=== PATIENT | male | born 1975 | race Caucasian/White ===

== ENCOUNTER 2018-08-12 12:10 | Emergency (ER) | payer BC, OTHER ==
[2018-08-12] MEDS ORDERED: LORazepam 2 MG/ML SDV IVPUSH ONE (13:28)
[2018-08-12] MEDS ORDERED: Sodium Chloride 0.9% 10 ML Syringe FLUSH PRN (13:28)
[2018-08-12] MEDS ORDERED: Sodium Chloride 0.9% 1,000 ML IV SCH (13:30)
--- NOTE | 2018-08-12 13:35 | EDM.PDOC ---
ED HPI GENERAL MEDICAL PROBLEM - General Chief Complaint: General Stated Complaint: WEAK/SHAKY Time Seen by Provider: 08/12/18 12:40 Source of Information: Reports: Patient, RN Notes Reviewed History Limitations: Reports: No Limitations - History of Present Illness INITIAL COMMENTS - FREE TEXT/NARRATIVE: Patient is a 43-year-old male who presents to the ED for the evaluation of dizziness. The patient states that the dizziness started this morning. He was sitting in his chair visiting his uncle, when he had a sudden onset of dizziness and felt like he was going to pass out. He states that he stood up and fell to his knees at this time. He doesn't describe any pain, but notes some hand and arm tingling and numbness. He doesn't have a history of anxiety, but appears anxious at bedside. He notes that he had quite a few beers last night, and has only had an energy drink today, and has not eaten a good meal for breakfast or lunch. He notes a history of high blood pressure, and a bulge disc in his back. He states that going from a laying to sitting position even provides him dizziness. - Related Data Allergies Allergy/AdvReac Type Severity Reaction Status Date / Time No Known Allergies Allergy Verified 08/12/18 12:16 Home Meds: Home Meds . [No Known Home Meds] 08/12/18 [History] Past Medical History HEENT History: Reports: Impaired Vision Other HEENT History: wears glasses Social & Family History - Tobacco Use Smoking Status *Q: Current Every Day Smoker Years of Tobacco use: 12 Packs/Tins Daily: 0.5 - Caffeine Use Caffeine Use: Reports: Coffee, Energy Drinks - Alcohol Use Days Per Week of Alcohol Use: 7 Number of Drinks Per Day: 2 Total Drinks Per Week: 14 - Recreational Drug Use Recreational Drug Use: No ED ROS GENERAL - Review of Systems Review Of Systems: See Below Constitutional: Denies: Fever, Chills HEENT: Reports: Vertigo. Denies: Vision Change Respiratory: Reports: No Symptoms Cardiovascular: Reports: No Symptoms Endocrine: Reports: No Symptoms GI/Abdominal: Reports: No Symptoms : Reports: No Symptoms Musculoskeletal: Reports: No Symptoms Skin: Reports: No Symptoms Neurological: Reports: Dizziness, Numbness, Tingling (bilateral arms/hands). Denies: Headache, Syncope, Difficulty Walking Psychiatric: Reports: No Symptoms Hematologic/Lymphatic: Reports: No Symptoms Immunologic: Reports: No Symptoms ED EXAM, GENERAL - Physical Exam Exam: See Below Exam Limited By: No Limitations General Appearance: Alert, WD/WN, No Apparent Distress Eye Exam: Bilateral Eye: Normal Inspection, PERRL Nose: Normal Inspection Throat/Mouth: Normal Inspection, Normal Lips, Normal Teeth, Normal Gums, Normal Oropharynx, Normal Voice, No Airway Compromise Head: Atraumatic, Normocephalic Neck: Normal Inspection, Supple, Non-Tender, Full Range of Motion Respiratory/Chest: No Respiratory Distress, Lungs Clear, Normal Breath Sounds, No Accessory Muscle Use, Chest Non-Tender Cardiovascular: Normal Peripheral Pulses, Regular Rate, Rhythm, No Murmur Peripheral Pulses: 3+: Radial (L), Radial (R) GI/Abdominal: Normal Bowel Sounds, Soft, Non-Tender, No Distention Extremities: Normal Inspection, Normal Capillary Refill Neurological: Alert, Oriented, Normal Cognition, Normal Reflexes, No Motor/ Sensory Deficits Psychiatric: Normal Affect, Normal Mood Skin Exam: Warm, Intact, Normal Color, No Rash, Diaphoretic Course - Vital Signs Last Recorded V/S: Last Vital Signs Temp 97.4 F 08/12/18 12:17 Pulse 100 08/12/18 12:17 Resp 18 08/12/18 12:17 BP 182/88 H 08/12/18 12:17 Pulse Ox 100 08/12/18 12:17 - Orders/Labs/Meds Orders: Active Orders 24 hr Category Date Time Status Peripheral IV Care [RC] . DIRECTED Care 08/12/18 13:28 Ordered Sodium Chloride 0.9% [Normal Saline] 1,000 ml Med 08/12/18 13:30 Ordered IV ASDIRECTED Sodium Chloride 0.9% [Saline Flush] Med 08/12/18 13:28 Ordered 10 ml FLUSH ASDIRECTED PRN Peripheral IV Insertion Adult [OM.PC] Routine Oth 08/12/18 13:28 Ordered Medication Orders Sodium Chloride (Normal Saline) 1,000 mls @ 999 mls/hr IV ASDIRECTED KENDRA Last Admin: 08/12/18 13:43 Dose: 999 mls/hr Sodium Chloride (Saline Flush) 10 ml FLUSH ASDIRECTED PRN PRN Reason: Keep Vein Open Last Admin: 08/12/18 13:43 Dose: 10 ml Labs: Laboratory Tests 08/12/18 08/12/18 Range/Units 13:40 13:40 WBC 8.40 (4.23-9.07) K/mm3 RBC 4.39 L (4.63-6.08) M/mm3 Hgb 14.2 (13.7-17.5) gm/L Hct 41.2 (40.1-51.0) % MCV 93.8 H (79.0-92.2) fl MCH 32.3 H (25.7-32.2) pg MCHC 34.5 (32.2-35.5) g/dl RDW Std Deviation 43.0 (35.1-43.9) fL Plt Count 209 (163-337) K/mm3 MPV 8.5 L (9.4-12.3) fl Neutrophils % (Manual) 63 H (40-60) % Band Neutrophils % 0 (0-10) % Lymphocytes % (Manual) 34 (20-40) % Atypical Lymphs % 0 % Monocytes % (Manual) 2 (2-10) % Eosinophils % (Manual) 0 L (0.8-7.0) % Basophils % (Manual) 1 (0.2-1.2) Platelet Estimate Adequate Plt Morphology Comment Normal RBC Morph Comment Normal Sodium 137 (136-145) mEq/L Potassium 3.6 (3.5-5.1) mEq/L Chloride 99 (98-107) mEq/L Carbon Dioxide 26 (21-32) mEq/L Anion Gap 15.6 H (5-15) BUN 10 (7-18) mg/dL Creatinine 0.9 (0.7-1.3) mg/dL Est Cr Clr Drug Dosing 111.53 mL/min Estimated GFR (MDRD) > 60 (>60) mL/min BUN/Creatinine Ratio 11.1 L (14-18) Glucose 110 H (74-106) mg/dL Calcium 9.2 (8.5-10.1) mg/dL Total Bilirubin 0.4 (0.2-1.0) mg/dL AST 18 (15-37) U/L ALT 32 (16-63) U/L Alkaline Phosphatase 50 (46-116) U/L Total Protein 7.2 (6.4-8.2) g/dl Albumin 4.1 (3.4-5.0) g/dl Globulin 3.1 gm/dL Albumin/Globulin Ratio 1.3 (1-2) Meds: Medications Generic Name Dose Route Start Last Admin Trade Name Rhonda PRN Reason Stop Dose Admin Sodium Chloride 1,000 mls @ 999 mls/hr 08/12/18 13:30 08/12/18 13:43 Normal Saline IV 999 mls/hr ASDIRECTED KENDRA Administration Sodium Chloride 10 ml 08/12/18 13:28 08/12/18 13:43 Saline Flush FLUSH 10 ml ASDIRECTED PRN Administration Keep Vein Open Discontinued Medications Generic Name Dose Route Start Last Admin Trade Name Freq PRN Reason Stop Dose Admin Lorazepam 0.5 mg 08/12/18 13:28 08/12/18 13:44 Ativan IVPUSH 08/12/18 13:29 0.5 mg ONETIME ONE Administration - Re-Assessments/Exams Free Text/Narrative Re-Assessment/Exam: 08/12/18 13:34 Patient presents to the ED for the evaluation of feeling weak and dizzy. He did drink quite a bit of beer last night. It is likely that he is either hung over her slightly dehydrated which is saturating to some of these dizziness issues. He did appear fairly anxious, have ordered 0.5 mg IV Ativan to be given , with some IV fluids and basic labs to include CBC and CMP to see if there is any other abnormalities going on at this time. He does not complain of pain anywhere. Again this is likely that he is dehydrated or has a slight hangover. 08/12/18 14:15 Patient was reassessed at bedside, and states that he feels much better his dizziness has subsided. He has had about half a bag of fluids in, his labs are done, did not demonstrate any metabolic abnormalities at this time. It is likely that he was slightly hung over, as they fluids and Ativan have helped. He will be discharged after his fluids are completed. Departure - Departure Time of Disposition: 14:44 Disposition: Home, Self-Care 01 Condition: Fair Clinical Impression: Dizziness, Anxiety - Discharge Information *PRESCRIPTION DRUG MONITORING PROGRAM REVIEWED*: No *COPY OF PRESCRIPTION DRUG MONITORING REPORT IN PATIENT GRACIE: No Instructions: Dizziness, [id number], Generalized Anxiety Disorder, Adult Forms: ED Department Discharge Additional Instructions: You have been evaluated in the ED today for your dizziness. Your labs were within normal limits, you had did receive IV fluids, and 0.5 mg Ativan for anxiety-like symptoms. This did seem to help your condition improved. Please increase your oral fluid intake as you are able. As this will also help , please eat regular meals, and do not drink energy drinks on an empty stomach. The caffeine can make you feel quite shaky and produced anxiety like symptoms as well. Please return to the ED if your symptoms should change or worsen. - My Orders Last 24 Hours: My Active Orders 08/12/18 13:28 Peripheral IV Care [RC] . DIRECTED Sodium Chloride 0.9% [Saline Flush] 10 ml FLUSH ASDIRECTED PRN Peripheral IV Insertion Adult [OM.PC] Routine 08/12/18 13:30 Sodium Chloride 0.9% [Normal Saline] 1,000 ml IV ASDIRECTED - Assessment/Plan Last 24 Hours: My Active Orders 08/12/18 13:28 Peripheral IV Care [RC] . DIRECTED Sodium Chloride 0.9% [Saline Flush] 10 ml FLUSH ASDIRECTED PRN Peripheral IV Insertion Adult [OM.PC] Routine 08/12/18 13:30 Sodium Chloride 0.9% [Normal Saline] 1,000 ml IV ASDIRECTED
== END 2018-08-12 15:06 | disposition home or self-care (01) ==
LOC: JD.ED 12:10
DX: R42 Dizziness and giddiness (principal); F41.9 Anxiety disorder, unspecified; F17.210 Nicotine dependence, cigarettes, uncomplicated
CPT/HCPCS: 36415; 80053; 85007; 85027; 96361; 96374; 99284; J2060; J7040

== ENCOUNTER 2018-08-16 13:34 | Emergency (ER) | payer BC ==
--- NOTE | 2018-08-16 14:50 | EDM.PDOC ---
ED HPI GENERAL MEDICAL PROBLEM - General Chief Complaint: Back Pain or Injury Stated Complaint: LOWER BACK PAIN,DIZZY Time Seen by Provider: 08/16/18 14:01 Source of Information: Reports: Patient, Family (), Old Records (ED 08/12/2018 , MRI 06/20/2018), RN Notes Reviewed History Limitations: Reports: No Limitations - History of Present Illness INITIAL COMMENTS - FREE TEXT/NARRATIVE: The patient states that he has felt lightheaded while standing, but only slightly if supine, since around 08:00 this morning. He specifically denies the sensation of the room spinning, positionally or otherwise. He has had similar symptoms several times over the past few weeks, although today's symptoms are not as bad as usual. The patient also reports chronic low back pain that he believes is related to a herniated intervertebral disc. He states that he underwent a recent MRI of his lower back. He states that he was referred to physical therapy, but has not yet gone. He is not sure if his dizziness and back problem are somehow related. The patient reports that he has a history of depression, PTSD, and hypertension , and that he was prescribed bupropion, losartan, and meclizine (for his dizziness) in June, but that he did not take any until this morning. He states that he doesn't like to take pills. None of those medicines seemed to make any difference today. Medical records indicate that the patient was seen in this ED on 08/12/2018 with a complaint of dizziness after drinking a lot of beer the night before. A CBC and CMP were unremarkable. He was given Ativan and IV fluid, and felt better. The patient denies having recent fever or chills, cough, chest pain, palpitations, nausea, vomiting, constipation, diarrhea, abdominal pain, or urinary symptoms. He states that he drinks both water and Gatorade. The patient's PCP is Angelica Osborne NP. Back Pain Score (Numeric/FACES): 9 - Related Data Allergies Allergy/AdvReac Type Severity Reaction Status Date / Time No Known Allergies Allergy Verified 08/12/18 12:16 Home Meds: Home Meds Losartan Potassium 50 mg PO DAILY 08/16/18 [History] Meclizine [Antivert] 25 mg PO TID 08/16/18 [History] Orphenadrine [Norflex] 1 tab PO Q12H PRN #20 tab.er 08/16/18 [Rx] buPROPion [buPROPion XL] 150 mg PO DAILY 08/16/18 [History] Past Medical History HEENT History: Reports: Impaired Vision Other HEENT History: wears glasses Cardiovascular History: Reports: Hypertension Musculoskeletal History: Reports: Back Pain, Chronic Psychiatric History: Reports: Depression, PTSD Social & Family History - Tobacco Use Smoking Status *Q: Current Every Day Smoker Years of Tobacco use: 30 Packs/Tins Daily: 0.5 - Caffeine Use Caffeine Use: Reports: Coffee, Energy Drinks, Soda Other Caffeine Use: last energy drink was wednesday - Alcohol Use Alcohol Use History: Yes Alcohol Use Frequency: Daily - Recreational Drug Use Recreational Drug Use: No - Living Situation & Occupation Living situation: Reports: , with Spouse Occupation: Employed ED ROS GENERAL - Review of Systems Review Of Systems: ROS reveals no pertinent complaints other than HPI. ED EXAM, GENERAL - Physical Exam Exam: See Below Exam Limited By: No Limitations General Appearance: Alert, WD/WN, No Apparent Distress, Anxious Eye Exam: Bilateral Eye: EOMI, Normal Inspection Ears: Normal External Exam, Hearing Grossly Normal Nose: Normal Inspection Throat/Mouth: Normal Inspection, Normal Lips, Normal Voice, No Airway Compromise Head: Atraumatic, Normocephalic Neck: Normal Inspection, Full Range of Motion Respiratory/Chest: No Respiratory Distress, Lungs Clear, Normal Breath Sounds, No Accessory Muscle Use Cardiovascular: Normal Peripheral Pulses, Regular Rate, Rhythm, No Edema, No Gallop, No JVD, No Murmur, No Rub Peripheral Pulses: 4+: Radial (L), Radial (R) GI/Abdominal: Normal Bowel Sounds, Soft, Non-Tender, No Organomegaly, No Distention, No Abnormal Bruit, No Mass (Male) Exam: Deferred Rectal (Males) Exam: Deferred Back Exam: Normal Inspection, Full Range of Motion, NT Extremities: Normal Inspection, Normal Range of Motion, No Pedal Edema, Normal Capillary Refill Neurological: Alert, Oriented, Normal Cognition, No Motor/Sensory Deficits Psychiatric: Anxious Skin Exam: Warm, Dry, Intact, Normal Color, No Rash Course - Vital Signs Last Recorded V/S: Last Vital Signs Temp 37.2 C 08/16/18 13:45 Pulse 146 H 08/16/18 13:45 Resp 20 08/16/18 13:45 BP 146/96 H 08/16/18 13:45 Pulse Ox 97 08/16/18 13:45 Orthostatic Blood Pressure [ 125/92 Standing] Orthostatic Blood Pressure [ 139/88 Sitting] Orthostatic Blood Pressure [ 133/88 Supine] - Re-Assessments/Exams Free Text/Narrative Re-Assessment/Exam: 08/16/18 14:46 The patient presents with 2 complaints: First, he is complaining of dizziness, present if supine, but worse if he is upright, however, this has been going on for a few weeks, and he reports that it is not as bad today as it usually is. Since the patient's symptoms are present even if he is supine, this strongly suggests that anxiety may play a role. I have ordered orthostatics, but I don't feel the need to repeat blood work, since he had negative blood work performed 4 days ago. Second, he is complaining of low back pain, but this is also chronic. A MRI of his lumbar spine dated 06/20/2018, shows no significant disc bulging, with the exception of a very slight circumferential disc bulge at L5-S1, with some neural foraminal compromise on the left. This may or may not be the cause of the patient's low back pain. The patient has been referred to physical therapy, but has not yet gone. I think that would be a good place to start. I do not see an indication for an emergency workup at this time, since his symptoms are no different today than they usually are. 08/16/18 15:19 The patient is not orthostatic. 08/16/18 15:43 Orthostatic results discussed with the patient and his . As above, I suspect that the patient is suffering from anxiety, and the patient agreed that he has increased stress in his life. I recommended that the patient continue to take the bupropion that he started today. I recommended that he NOT continue with the meclizine, as the patient is not suffering from vertigo. All that meclizine will do is make him tired. With respect to the patient's blood pressure, I noticed that his blood pressure is not significantly elevated here in the ED - 146/96 - despite having taken only a single dose of losartan. Losartan typically takes about 2 weeks before it becomes effective. I recommended that the patient start checking his blood pressure 2-3 times a week, but only under restful conditions. If his blood pressure is good under those conditions, he does not need to be on an antihypertensive. I think it is very likely that his recent elevated blood pressure is related to his anxiety. If he treats his anxiety, his blood pressure will likely fall into line. The patient expressed understanding. With respect to the patient's chronic low back pain, I discussed his MRI results , that shows only a mild disc bulge at the L5-S1 level. The patient states that he has pain only in his lower back region, without radiculopathy down either leg , so the leftward bulge of the L5-S1 disc is not likely responsible for his symptoms. The patient may benefit from a muscle relaxant. I will prescribe Norflex, that the patient can start tonight. Departure - Departure Time of Disposition: 15:45 Disposition: Home, Self-Care 01 Condition: Good Clinical Impression: Anxiety - Discharge Information *PRESCRIPTION DRUG MONITORING PROGRAM REVIEWED*: Not Applicable *COPY OF PRESCRIPTION DRUG MONITORING REPORT IN PATIENT GRACIE: Not Applicable Prescriptions: Orphenadrine [Norflex] 1 tab PO Q12H PRN #20 tab.er PRN Reason: Muscle Spasm Instructions: Generalized Anxiety Disorder, Adult, Panic Attack, [id number] Referrals: Angelica Osborne MD [Primary Care Provider] - Forms: ED Department Discharge Additional Instructions: You were seen in the emergency room for ever weeks of feeling lightheaded, not only when upright, but also when lying down, along with chronic low back pain. Workup in the ER included positional blood pressure checks, which returned normal. You are not intravascularly dry/dehydrated. Blood work from 08/12/2018 was reviewed, and found to be essentially normal. It did not require repeating today. The results of the MRI of your lower back from 06/20/2018 were reviewed. Based on your history and physical exam, your lightheadedness is most likely related to anxiety. We recommend that you continue to take the bupropion that you started today, as prescribed. Be aware that this medicine may take several weeks before it becomes effective - you need to be patient. Your lightheadedness is NOT due to vertigo, therefore we recommended that you STOP taking the meclizine. Your lower back pain is not likely due to a bulging disc or pinched nerve, rather, it is most likely due to a muscle spasm, that may also be related to your anxiety. A prescription for the muscle relaxant Norflex has been sent to the [facility]. Take one tablet of Norflex every 12 hours, starting this evening, 08/16/2018, as prescribed. As discussed, in order to see if you have hypertension, you need to check your blood pressure 2-3 times a week, for 2-3 weeks, but only while you are under restful conditions = you are sitting quietly for 5, and preferably 15 minutes, you are not in pain, you are not anxious, and you are not sick. If any other problems, please do not hesitate to return to the ER.
== END 2018-08-16 16:03 | disposition home or self-care (01) ==
LOC: JD.ED 13:34
DX: F41.9 Anxiety disorder, unspecified (principal); I10 Essential (primary) hypertension; F32.9 Major depressive disorder, single episode, unspecified; F17.210 Nicotine dependence, cigarettes, uncomplicated; Z79.899 Other long term (current) drug therapy
CPT/HCPCS: 99283

== ENCOUNTER 2019-10-06 16:09 | Emergency (ER) | payer BC ==
[2019-10-06] MEDS ORDERED: Ketorolac 60 MG/2 ML SDV IM ONE (16:50)
[2019-10-06] MEDS ORDERED: Penicillin V Potassium 500 MG Tab PO ONE (16:56)
--- NOTE | 2019-10-06 17:04 | EDM.PDOC ---
ED HPI GENERAL MEDICAL PROBLEM - General Chief Complaint: ENT Problem Stated Complaint: DENTAL COMPLAINT Time Seen by Provider: 10/06/19 16:27 Source of Information: Reports: Patient History Limitations: Reports: No Limitations - History of Present Illness INITIAL COMMENTS - FREE TEXT/NARRATIVE: Patient is a 44-year-old male who presents to the emergency department with complaints of dental pain to his left lower jaw. First noticed the symptoms yesterday, but this morning they have been getting progressively worse. He took Tylenol around 7:00 this morning with no relief. They were driving back from [place] today and attempted to get in with a number of different dentist along the way, however nobody was open as it is Wednesday. He denies any fever, chills, nausea, or vomiting. Tooth/Teeth Pain Score (Numeric/FACES): 10 - Related Data Allergies Allergy/AdvReac Type Severity Reaction Status Date / Time No Known Allergies Allergy Verified 10/06/19 16:24 Home Meds: Home Meds Losartan Potassium 50 mg PO DAILY 08/16/18 [History] Acetaminophen [Tylenol Extra Strength] 1 tab PO Q4HR PRN 10/06/19 [History] Acetaminophen with Codeine [Acetaminophen-Cod #3] 1 each PO Q4H PRN #10 tablet 10/06/19 [Rx] Aspirin 81 mg PO DAILY 10/06/19 [History] Gabapentin [Neurontin] 600 mg PO TID 10/06/19 [History] Metoprolol Succinate [Toprol XL] 25 mg PO DAILY 10/06/19 [History] Omeprazole 20 mg PO DAILY 10/06/19 [History] Penicillin V Potassium [Veetids] 500 mg PO Q6H 7 Days #28 tab 10/06/19 [Rx] Pravastatin Sodium 10 mg PO DAILY 10/06/19 [History] busPIRone [Buspar] 10 mg PO BID 10/06/19 [History] Past Medical History HEENT History: Reports: Impaired Vision Other HEENT History: wears glasses Cardiovascular History: Reports: High Cholesterol, Hypertension Respiratory History: Reports: None Gastrointestinal History: Reports: GERD Genitourinary History: Reports: None Musculoskeletal History: Reports: Back Pain, Chronic, Fracture Neurological History: Reports: Vertigo Psychiatric History: Reports: Depression, PTSD Endocrine/Metabolic History: Reports: None Hematologic History: Reports: None Immunologic History: Reports: None Oncologic (Cancer) History: Reports: None Dermatologic History: Reports: None - Infectious Disease History Infectious Disease History: Reports: None - Past Surgical History HEENT Surgical History: Reports: Oral Surgery Social & Family History - Tobacco Use Smoking Status *Q: Current Every Day Smoker Years of Tobacco use: 25 Packs/Tins Daily: 0.5 - Caffeine Use Caffeine Use: Reports: Coffee, Soda Other Caffeine Use: last energy drink was wednesday - Recreational Drug Use Recreational Drug Use: No - Living Situation & Occupation Living situation: Reports: , with Spouse Occupation: Employed ED ROS ENT - Review of Systems Review Of Systems: See Below Constitutional: Reports: No Symptoms. Denies: Fever, Chills HEENT: Reports: Dental Pain Respiratory: Reports: No Symptoms Cardiovascular: Reports: No Symptoms Endocrine: Reports: No Symptoms GI/Abdominal: Reports: No Symptoms : Reports: No Symptoms Musculoskeletal: Reports: No Symptoms Skin: Reports: No Symptoms Neurological: Reports: No Symptoms Psychiatric: Reports: No Symptoms Hematologic/Lymphatic: Reports: No Symptoms Immunologic: Reports: No Symptoms ED EXAM, ENT - Physical Exam Exam: See Below Exam Limited By: No Limitations General Appearance: Alert, WD/WN, No Apparent Distress Mouth/Throat: Dental Pain, Dental Tenderness (Swelling noted to the left lower jaw directly below tooth 35. No obvious dental caries, broken teeth, or redness to gums.). No: Dental Trauma Respiratory/Chest: No Respiratory Distress, Lungs Clear, Normal Breath Sounds, No Accessory Muscle Use, Chest Non-Tender Cardiovascular: Normal Peripheral Pulses, Regular Rate, Rhythm, No Edema, No Gallop, No JVD, No Murmur, No Rub Neurological: Alert, Oriented, CN II-XII Intact, Normal Cognition, Normal Gait, Normal Reflexes, No Motor/Sensory Deficits Psychiatric: Normal Affect, Normal Mood Skin: Warm, Dry, Intact, Normal Color, No Rash Course - Vital Signs Last Recorded V/S: Last Vital Signs Temp 98.2 F 10/06/19 16:25 Pulse 85 10/06/19 16:25 Resp 16 10/06/19 16:25 BP 158/96 H 10/06/19 16:25 Pulse Ox 97 10/06/19 16:25 - Orders/Labs/Meds Meds: Medications Discontinued Medications Generic Name Dose Route Start Last Admin Trade Name Freq PRN Reason Stop Dose Admin Ketorolac Tromethamine 60 mg 10/06/19 16:50 10/06/19 17:07 Toradol IM 10/06/19 16:51 60 mg ONETIME ONE Administration Penicillin V Potassium 500 mg 10/06/19 16:56 10/06/19 17:07 Veetids PO 10/06/19 16:57 500 mg ONETIME ONE Administration - Re-Assessments/Exams Free Text/Narrative Re-Assessment/Exam: On exam, patient does have an area of swelling to the left lower jaw near tooth 35. No obvious dental caries, broken teeth, or redness of the gums. We will start the patient on Veetids and Tylenol 3. He will get an injection of Toradol in the ER. Discussed that it is imperative that he follow-up with a dentist for further treatment. They verbalized understanding. Discharge instructions as documented. Departure - Departure Time of Disposition: 17:00 Disposition: Home, Self-Care 01 Condition: Good Clinical Impression: Dental abscess - Discharge Information *PRESCRIPTION DRUG MONITORING PROGRAM REVIEWED*: Yes *COPY OF PRESCRIPTION DRUG MONITORING REPORT IN PATIENT GRACIE: No Prescriptions: Acetaminophen with Codeine [Acetaminophen-Cod #3] 1 each PO Q4H PRN #10 tablet PRN Reason: Pain Penicillin V Potassium [Veetids] 500 mg PO Q6H 7 Days #28 tab Instructions: Dental Abscess, [id number] Referrals: Angelica Osborne, STENOTYPE MACHINE OPERATOR [Primary Care Provider] - Forms: ED Department Discharge Additional Instructions: You were seen in the emergency department today for left lower tooth pain and swelling. You have been started on penicillin V which is an antibiotic. Recommend that you use [id number] Tylenol and ibuprofen routinely. For pain not relieved by these measures, a prescription for Tylenol with codeine has been sent to [email or web address]. Use this medication only as prescribed. Do not drive or work for 12 hours after taking this as it can be sedating. You may also apply ice to your left lower jaw intermittently to reduce the swelling. Recommend that you call first thing Wednesday morning to schedule an appointment with a dentist as of this is the only definitive treatment for a dental abscess. You should experience any worsening symptoms, please do not hesitate to return to the emergency department. Sepsis Event Note (ED) - Evaluation Sepsis Screening Result: No Definite Risk - Focused Exam Vital Signs: Vital Signs Temp Pulse Resp BP Pulse Ox 10/06/19 16:25 98.2 F 85 16 158/96 H 97
== END 2019-10-06 17:30 | disposition home or self-care (01) ==
LOC: JD.ED 16:09
DX: K04.7 Periapical abscess without sinus (principal); I10 Essential (primary) hypertension; K21.9 Gastro-esophageal reflux disease without esophagitis; F32.9 Major depressive disorder, single episode, unspecified; F17.210 Nicotine dependence, cigarettes, uncomplicated; Z79.82 Long term (current) use of aspirin; Z79.899 Other long term (current) drug therapy
CPT/HCPCS: 96372; 99282; A9270; J1885; 99283

== ENCOUNTER 2020-04-07 08:36 | Emergency (ER) | payer BC ==
[2020-04-07] MEDS ORDERED: cefTRIAXone 2 GM in Sodium Chloride 0.9% 100 ML IV ONE (09:09)
--- NOTE | 2020-04-07 09:09 | EDM.PDOC ---
ED HPI GENERAL MEDICAL PROBLEM - General Chief Complaint: ENT Problem Stated Complaint: SORE THROAT Time Seen by Provider: 04/07/20 09:01 Source of Information: Reports: Patient History Limitations: Reports: No Limitations - History of Present Illness INITIAL COMMENTS - FREE TEXT/NARRATIVE: 45-year-old male attends the ED with his . He reports he started to feel unwell 2 days ago. Generalized fatigue and gradually worsening sore throat over the last 48 hours. reports she did have a fever last evening of 98.9 degrees. He feels mildly warm to palpation at this time. He has exquisite pain with attempts to swallow with no radiation into his ears. He denies cough or sputum production. He is hungry but it hurts too much to swallow. No associated nausea vomiting or diarrhea. No severe chills. Onset: Gradual Onset Date: 04/04/20 Duration: Day(s):, Getting Worse Location: Reports: Neck (Of your throat pain with swallowing) Quality: Reports: Ache, Burning, Sharp, Stabbing Severity: Severe (Pain is sharp and stabbing with swallowing. Feels like swallowing razor blades.) Improves with: Reports: None Worsens with: Reports: Other (Eating or drinking.) Context: Reports: Other (Spontaneous occurrence). Denies: Activity, Exercise, Lifting, Sick Contact, Trauma Associated Symptoms: Reports: Diaphoresis (Grade fever.), Fever/Chills, Malaise, Weakness, Other (Mild dizziness.). Denies: Confusion, Chest Pain, Cough, cough w sputum, Headaches, Loss of Appetite, Nausea/Vomiting, Rash, Seizure, Shortness of Breath, Syncope Treatments [employer]: Reports: Other (see below) (He has not taken Motrin or Tylenol.) Throat Pain Score (Numeric/FACES): 8 - Related Data Allergies Allergy/AdvReac Type Severity Reaction Status Date / Time No Known Allergies Allergy Verified 04/07/20 08:50 Home Meds: Home Meds Losartan Potassium 50 mg PO DAILY 08/16/18 [History] Acetaminophen [Tylenol Extra Strength] 1 tab PO Q4HR PRN 10/06/19 [History] Aspirin 81 mg PO DAILY 10/06/19 [History] Metoprolol Succinate [Toprol XL] 25 mg PO DAILY 10/06/19 [History] Omeprazole 20 mg PO DAILY 10/06/19 [History] Pravastatin Sodium 10 mg PO DAILY 10/06/19 [History] Cefdinir [Omnicef] 300 mg PO BID #16 cap 04/07/20 [Rx] oxyCODONE HCl/Acetaminophen [Percocet 5-325 mg Tablet] 1 - 2 each PO Q4H PRN #15 tablet 04/07/20 [Rx] Past Medical History HEENT History: Reports: Impaired Vision Other HEENT History: wears glasses Cardiovascular History: Reports: High Cholesterol, Hypertension Respiratory History: Reports: None Gastrointestinal History: Reports: GERD Genitourinary History: Reports: None Musculoskeletal History: Reports: Back Pain, Chronic, Fracture Neurological History: Reports: Vertigo Psychiatric History: Reports: Depression, PTSD Endocrine/Metabolic History: Reports: None Hematologic History: Reports: None Immunologic History: Reports: None Oncologic (Cancer) History: Reports: None Dermatologic History: Reports: None - Infectious Disease History Infectious Disease History: Reports: Chicken Pox - Past Surgical History HEENT Surgical History: Reports: Oral Surgery Social & Family History - Family History Family Medical History: No Pertinent Family History - Caffeine Use Caffeine Use: Reports: Coffee, Soda Other Caffeine Use: last energy drink was wednesday - Living Situation & Occupation Living situation: Reports: , with Spouse Occupation: Employed ED ROS ENT - Review of Systems Review Of Systems: See Below Constitutional: Reports: Fever, Fatigue (Not sleeping all night.). Denies: Chills HEENT: Reports: Throat Pain (Severe throat pain over the last 48 hours) Respiratory: Reports: No Symptoms Cardiovascular: Reports: No Symptoms Endocrine: Reports: No Symptoms GI/Abdominal: Reports: No Symptoms. Denies: Diarrhea, Nausea, Vomiting : Reports: No Symptoms Musculoskeletal: Reports: No Symptoms Skin: Reports: No Symptoms Neurological: Reports: Dizziness (Mild dizziness with standing) Psychiatric: Reports: No Symptoms Hematologic/Lymphatic: Reports: No Symptoms Immunologic: Reports: No Symptoms ED EXAM, ENT - Physical Exam Exam: See Below Exam Limited By: No Limitations General Appearance: Alert, WD/WN, Moderate Distress, Other (He is mildly warm to palpation. Nurses recorded temperature 36.6 but he feels a little warmer than that. Heart rate was 100 with respiratory rate of 18 and O2 sats of 96% room air BP 133/93.) Eye Exam: Bilateral Eye: Normal Inspection (No scleral icterus or blepharal pallor.), PERRL Ears: Normal TMs Mouth/Throat: Throat Pain, Throat Swelling, Tonsillar Erythema, Tonsillar Exudates, Tonsillar Swelling (Nearly meeting in the midline.), Uvular Edema Head: Atraumatic, Normocephalic Neck: Normal Inspection, Supple, Non-Tender, Full Range of Motion. No: Lymphadenopathy (L), Lymphadenopathy (R) Respiratory/Chest: No Respiratory Distress, Lungs Clear, Normal Breath Sounds, No Accessory Muscle Use Cardiovascular: Normal Peripheral Pulses, No Edema, No Gallop ( at 110/min on my assessment), No Murmur, No Rub, Tachycardia (Tachycardia) GI/Abdominal: Normal Bowel Sounds, Soft, Non-Tender, No Organomegaly, No Distention, No Mass, Pelvis Stable Back: Normal Inspection, Full Range of Motion. No: CVA Tenderness (L), CVA Tenderness (R) Extremities: Normal Inspection, Normal Range of Motion, Non-Tender, No Pedal Edema Neurological: Alert, Oriented, CN II-XII Intact, Normal Cognition Psychiatric: Normal Affect, Normal Mood Skin: Warm, Intact, Normal Color Course - Vital Signs Last Recorded V/S: Last Vital Signs Temp 36.6 C 04/07/20 08:46 Pulse 100 04/07/20 08:46 Resp 18 04/07/20 08:46 BP 133/93 H 04/07/20 08:46 Pulse Ox 95 04/07/20 08:46 - Orders/Labs/Meds Orders: Active Orders 24 hr Category Date Time Status Dextrose 5%-0.9% NaCl [Dextrose 5%-Normal Saline] 1,000 Med 04/07/20 09:15 Active ml IV ASDIRECTED Ketorolac [Toradol] Med 04/07/20 09:15 Active 30 mg IVPUSH ONETIME Medication Orders Dextrose/Sodium Chloride (Dextrose 5%-Normal Saline) 1,000 mls @ 800 mls/hr IV ASDIRECTED KENDRA Last Admin: 04/07/20 09:31 Dose: 800 mls/hr Documented by: HERMMIC Ketorolac Tromethamine (Toradol) 30 mg IVPUSH ONETIME [facility] Labs: Laboratory Tests 04/07/20 Range/Units 09:38 Group A Strep (PCR) Detected (NOT DETECT) Meds: Medications Generic Name Dose Route Start Last Admin Trade Name Freq PRN Reason Stop Dose Admin Dextrose/Sodium Chloride 1,000 mls @ 800 mls/hr 04/07/20 09:15 04/07/20 09:31 Dextrose 5%-Normal Saline IV 800 mls/hr ASDIRECTED KENDRA Administration Ketorolac Tromethamine 30 mg 04/07/20 09:15 Toradol IVPUSH ONETIME KENDRA Discontinued Medications Generic Name Dose Route Start Last Admin Trade Name Freq PRN Reason Stop Dose Admin Acetaminophen 975 mg 04/07/20 09:20 04/07/20 09:53 Tylenol PO 04/07/20 09:21 975 mg ONETIME ONE Administration Dexamethasone 12 mg 04/07/20 09:10 04/07/20 09:31 Decadron IVPUSH 04/07/20 09:11 12 mg ONETIME ONE Administration Hydromorphone HCl 1 mg 04/07/20 09:10 04/07/20 09:32 Dilaudid IVPUSH 04/07/20 09:11 1 mg ONETIME ONE Administration Ceftriaxone Sodium 2 gm/ 100 mls @ 200 mls/hr 04/07/20 09:09 04/07/20 09:32 Sodium Chloride IV 04/07/20 09:38 200 mls/hr ONETIME ONE Administration Ondansetron HCl 4 mg 04/07/20 09:29 04/07/20 09:53 Zofran IVPUSH 04/07/20 09:30 4 mg ONETIME ONE Administration - Radiology Interpretation Free Text/Narrative:: 45-year-old male presents to the ED with gradually worsening sore throat over the last 60 hours. Examination reveals bilateral follicular tonsillitis with significant exudate bilaterally but not blanketed. There is minimal submandibular adenopathy at this time. Tonsils are nearly kissing in the midline. He is having severe pain with attempts to swallow. Low-grade fever appreciated clinically. Plan rapid strep screen. IV D5 normal saline at open. Rocephin 2 g will be given IV. Pain relief with Dilaudid 1 mg IV with Zofran 4 mg IV. Toradol 30 mg IV. Tylenol 9 7 5 mg p.o. He will also be given a dose of dexamethasone 12 mg IV to reduce tonsillar swelling and reduce his pain so that he can eat. - Re-Assessments/Exams Free Text/Narrative Re-Assessment/Exam: 04/07/20 11:16 patient strep screen was positive for type A. He is feeling much improved after a liter of IV fluids and analgesia. Feels he can swallow again. He will be discharged home with diet as tolerated. Motrin 600 mg every 6 hours as needed for fever and body ache relief. Omnicef 300 mg twice daily for the next 8 days with first tablet to be taken tonight at bedtime. Note given to excuse him from work tomorrow. Departure - Departure Time of Disposition: 11:18 Disposition: Home, Self-Care 01 Condition: Fair Clinical Impression: Tonsillitis with exudate - Discharge Information *PRESCRIPTION DRUG MONITORING PROGRAM REVIEWED*: Not Applicable *COPY OF PRESCRIPTION DRUG MONITORING REPORT IN PATIENT GRACIE: Not Applicable Prescriptions: Cefdinir [Omnicef] 300 mg PO BID #16 cap oxyCODONE HCl/Acetaminophen [Percocet 5-325 mg Tablet] 1 - 2 each PO Q4H PRN #15 tablet PRN Reason: pain relief. Instructions: Tonsillitis, [id number] Referrals: Angelica Osborne, BASKET SORTER [Primary Care Provider] - Forms: ED Department Discharge, ED Return to Work/School Form Additional Instructions: Evaluation in the emergency room today in regards to her throat that developed a little over 48 hours ago. Examination reveals bilateral tonsillitis with exudate and a strep screen done through the ED was strongly positive. You are treated with a liter of IV fluids. Pain medication Dilaudid 1 mg with Zofran 4 mg for nausea relief. Toradol 30 mg IV also to help relieve pain and inflammation. You are also given a dose of steroid dexamethasone 12 mg IV to help reduce swelling of the tonsils over the next 24 hours. First dose of antibiotic Rocephin 2 g was given through the IV in the ED as well. Suggest plenty of fluids such as sipping on Gatorade or Powerade today as this is very similar to IV fluids. Continue Motrin 600 mg every 6 hours as needed to reduce pain and/or fever. You will need to start antibiotic Omnicef 300 mg twice daily for the next 8 days starting tonight at bedtime. Percocet tabs 5/325 mg 1 or 2 every 4-6 hours as necessary for pain relief which she will likely require over the next day and a half or so. Expect marked improvement over the next 36 to 48 hours. If not you should be seen again. Sepsis Event Note (ED) - Evaluation Sepsis Screening Result: No Definite Risk - Focused Exam Vital Signs: Vital Signs Temp Pulse Resp BP Pulse Ox 04/07/20 08:46 36.6 C 100 18 133/93 H 95 - My Orders Last 24 Hours: My Active Orders 04/07/20 09:15 Dextrose 5%-0.9% NaCl [Dextrose 5%-Normal Saline] 1,000 ml IV ASDIRECTED Ketorolac [Toradol] 30 mg IVPUSH ONETIME - Assessment/Plan Last 24 Hours: My Active Orders 04/07/20 09:15 Dextrose 5%-0.9% NaCl [Dextrose 5%-Normal Saline] 1,000 ml IV ASDIRECTED Ketorolac [Toradol] 30 mg IVPUSH ONETIME
[2020-04-07] MEDS ORDERED: HYDROmorphone 1 MG/ML Syringe IVPUSH ONE (09:10)
[2020-04-07] MEDS ORDERED: Dexamethasone 10 MG/ML SDV IVPUSH ONE (09:10)
[2020-04-07] MEDS ORDERED: Dextrose 5%-0.9% NaCl 1,000 ML IV SCH (09:15)
[2020-04-07] MEDS ORDERED: Ketorolac 30 MG/ML SDV IVPUSH SCH (09:15)
[2020-04-07] MEDS ORDERED: Acetaminophen 325 MG Tab PO ONE (09:20)
[2020-04-07] MEDS ORDERED: Ondansetron 4 MG/2 ML SDV IVPUSH ONE (09:29)
== END 2020-04-07 11:35 | disposition home or self-care (01) ==
LOC: JD.ED 08:36
DX: J03.90 Acute tonsillitis, unspecified (principal); E78.00 Pure hypercholesterolemia, unspecified; I10 Essential (primary) hypertension; K21.9 Gastro-esophageal reflux disease without esophagitis; Z79.899 Other long term (current) drug therapy; Z20.822 Contact with and (suspected) exposure to COVID-19
CPT/HCPCS: 87651; 96365; 96375; 99283; A9270; J0696; J1100; J1170; J2405; J7042; 99284